=== PATIENT | female | born 1955 | race American Indian/Alaskan Native ===

== ENCOUNTER 2017-07-18 11:09 | Outpatient (CLI) | payer BC ==
--- NOTE | 2017-07-19 14:41 | Mammography Report ---
BILATERAL DIGITAL SCREENING MAMMOGRAM with CAD: 07/18/17 11:09:00 CLINICAL: Routine screening. COMPARISON:07/19/16 FINDINGS: The breasts are almost entirely fatty. No mass, architectural distortion or suspicious calcifications. IMPRESSION: No mammographic evidence of malignancy. BI-RADS CATEGORY: 1 - - Negative RECOMMENDATION: Routine mammographic screening in one year. COMMENT: Patient follow-up letters are generated by our [employer] application.
== END 2017-07-18 11:10 | disposition home or self-care (01) ==
LOC: SPVWC 11:09
PROVIDERS: ATTEND Pediatrics
DX: Z12.31 Encounter for screening mammogram for malignant neoplasm of breast (principal)
CPT/HCPCS: 77067; G0202

== ENCOUNTER 2018-08-21 14:28 | Outpatient (CLI) | payer BC ==
--- NOTE | 2018-08-21 15:33 | Ultrasound Report ---
Spot compression magnification and sonographic examination of focal asymmetric density approximately 12:00 position left breast. Findings: There is partial effacement noted of the density on spot magnification views. Calcification in the adjacent region appears to be benign. No distinct mass is seen. Sonographic examination of asymmetric density reveals no cystic or solid mass. Impression: Probably benign focal asymmetry. 6 month followup with left mammogram and if necessary spot magnification and sonogram. BI-RADS CATEGORY: 3 = Probably benign ACR BI-RADS MAMMOGRAPHIC CODES: 0 = Needs additional imaging evaluation; 1 = Negative; 2 = Benign; 3 = Probably benign; 4 = Suspicious; 5 = Malignant; 6 = Known biopsy-proven malignancy COMMENT: 1. Dense breast tissue, i.e., adenosis, fibrocystic changes, etc., may obscure an underlying neoplasm. 2. Approximately 10% of cancers are not detected with mammography. 3. A negative mammography report should not delay biopsy if a clinically suspicious mass is present.
== END 2018-08-21 14:29 | disposition home or self-care (01) ==
LOC: SPVWC 14:28
PROVIDERS: ATTEND Pediatrics
DX: R92.8 Other abnormal and inconclusive findings on diagnostic imaging of breast (principal)

== ENCOUNTER 2019-02-19 10:42 | Outpatient (CLI) | payer BC ==
--- NOTE | 2019-02-19 11:58 | Mammography Report ---
LEFT BREAST DIAGNOSTIC MAMMOGRAM HISTORY: Six-month follow-up for asymmetry. COMPARISON: 08/21/2018 FINDINGS: Breast Density: Predominantly fatty breast parenchymal pattern. Digital CC and MLO views of the left breast demonstrate resolution of the previously identified asymm etry. No mass, architectural distortion or suspicious calcifications. A stable cluster of relatively central benign calcifications. IMPRESSION No mammographic evidence of malignancy. Recommend return to routine mammographic screening. BIRADS 2: Benign According to the [employer], yearly mammograms are recommended starting at age 40 and continuing as long as a woman is in good health. Clinical Breast Exams should be part of a period ic health exam-about every 3 years for women in their 20s and 30s and every year for women 40 and ove r. Breast self exam is an option for women starting in their 20s. Any breast change noted on a breast self exam should be reported promptly to the patient's healthcare provider. Breast MRI is recommende d for women with an approximately 20-25% or greater lifetime risk of breast cancer, including women w ith a strong family history of breast or ovarian cancer and women who have been treated for Hodgkin's disease. A negative Mammography report should not discourage follow up or biopsy of a clinically significant f inding and/or abnormality. Dense breast tissue may obscure small neoplasms. Signer Name: Bhanu Montano MD Signed: 02/19/2019 11:54 AM Workstation Name: [id number]
--- NOTE | 2019-02-23 13:29 | Mammography Report ---
DEXA BONE DENSITY SCAN INDICATION: OSTEOPOROSIS SCREENING. COMPARISON: 07/08/2014. LUMBAR SPINE (L1-L4): Bone mineral density (BMD) is 1.283 g/cm2. T-score is 2.1 (standard deviations of Young Adult mean). Z-score is 3.8 (standard deviations of Age Matched mean). RIGHT FEMORAL NECK: Bone mineral density (BMD) is 0.863 g/cm2. T-score is -1.1 (standard deviations of Young Adult mean). Z-score is -0.2 (standard deviations of Age Matched mean). IMPRESSION: 1. WHO Classification: Osteopenia. Fracture Risk: Increased. Signer Name: Natalia Hernández MD Signed: 02/23/2019 1:25 PM Workstation Name: [id number]
== END 2019-02-19 10:43 | disposition home or self-care (01) ==
LOC: SPVWC 10:42
PROVIDERS: ATTEND Pediatrics
DX: M85.88 Other specified disorders of bone density and structure, other site (principal); R92.8 Other abnormal and inconclusive findings on diagnostic imaging of breast
CPT/HCPCS: 77080

== ENCOUNTER 2019-07-09 15:06 | Outpatient (CLI) | payer BC ==
--- NOTE | 2019-07-09 16:39 | Mammography Report ---
DIGITAL SCREENING MAMMOGRAM WITH CAD, 07/09/2019 INDICATION: Routine screening mammography. TECHNIQUE: Digital bilateral 2D mammography was obtained in the craniocaudal and mediolateral obliq ue projections. This examination was interpreted with the benefit of Computer-Aided Detection analysi s. COMPARISON: 07/07/2018, 08/21/2018 and 02/19/2019 FINDINGS: Breast Density: The breasts are almost entirely fatty. There is no evidence of dominant mass, suspicious calcifications or architectural distortion in eithe r breast. IMPRESSION: No mammographic evidence of malignancy. Follow up recommendation: Routine yearly BI-RADS Category 1: Negative. A "normal" or negative report should not discourage follow up or biopsy of a clinically significant f inding. A written summary of these findings will be mailed to the patient. The patient will be entered into a mammography reporting system which will generate a reminder letter for the patient's next appointmen t at the appropriate interval. The [employer] recommends yearly mammograms starting at age 40 and continuing as l ashu as a woman is in good health. Breast MRI is recommended for women with an approximate 20-25% or greater lifetime risk of breast cancer, including women with a strong family history of breast or ova brad cancer or who have been treated for Hodgkin's disease. Signer Name: Bhanu Montano MD Signed: 07/09/2019 4:35 PM Workstation Name: [id number]
== END 2019-07-09 15:07 | disposition home or self-care (01) ==
LOC: SPVWC 15:06
PROVIDERS: ATTEND Pediatrics
DX: Z12.31 Encounter for screening mammogram for malignant neoplasm of breast (principal)
CPT/HCPCS: 77067

== ENCOUNTER 2020-07-11 09:47 | Outpatient (CLI) | payer BC ==
--- NOTE | 2020-07-11 13:36 | Mammography Report ---
DIGITAL SCREENING MAMMOGRAM WITH CAD, 07/11/2020 CLINICAL INFORMATION / INDICATION: Routine screening mammography. SCREENING MAMMOGRAM TECHNIQUE: Digital bilateral 2D mammography was obtained in the craniocaudal and mediolateral obliqu e projections. This examination was interpreted with the benefit of Computer-Aided Detection analysis . COMPARISON: 07/09/2019, 02/19/2019, 07/07/2018 FINDINGS: Breast Density: The breasts are almost entirely fatty. No dominant mass, suspicious calcifications, or architectural distortion in either breast. There are stable calcifications on the left. IMPRESSION: No mammographic evidence of malignancy. Follow up recommendation: Routine yearly BI-RADS Category 2: Benign. A "normal" or negative report should not discourage follow up or biopsy of a clinically significant f inding. A written summary of these findings will be mailed to the patient. The patient will be entered into a mammography reporting system which will generate a reminder letter for the patient's next appointmen t at the appropriate interval. The [employer] recommends yearly mammograms starting at age 40 and continuing as l ashu as a woman is in good health. Breast MRI is recommended for women with an approximate 20-25% or greater lifetime risk of breast cancer, including women with a strong family history of breast or ova brad cancer or who have been treated for Hodgkin's disease. Signer Name: Madi Ceja MD Signed: 07/11/2020 1:31 PM Workstation Name: [id number]
== END 2020-07-11 09:48 | disposition home or self-care (01) ==
LOC: SPVWC 09:47
PROVIDERS: ATTEND Pediatrics
DX: Z12.31 Encounter for screening mammogram for malignant neoplasm of breast (principal)
CPT/HCPCS: 77067

== ENCOUNTER 2021-07-12 10:40 | Outpatient (CLI) | payer MEDICARE, BC ==
--- NOTE | 2021-07-13 10:51 | Mammography Report ---
DIGITAL SCREENING MAMMOGRAM WITH CAD, 07/12/2021 CLINICAL INFORMATION / INDICATION: Routine screening mammography. SCREENING MAMMOGRAM TECHNIQUE: Digital bilateral 2D mammography was obtained in the craniocaudal and mediolateral obliqu e projections. This examination was interpreted with the benefit of Computer-Aided Detection analysis . COMPARISON: 07/19/2016 through 07/11/2020. FINDINGS: Breast Density: The breasts are almost entirely fatty. No dominant mass, suspicious calcifications, or architectural distortion in either breast. Grouped benign-appearing calcifications in the left central breast have not changed significantly. Ri ght breast scarring is stable. IMPRESSION: No mammographic evidence of malignancy. Follow up recommendation: Routine yearly BI-RADS Category 2: BENIGN. A "normal" or negative report should not discourage follow up or biopsy of a clinically significant f inding. A written summary of these findings will be mailed to the patient. The patient will be entered into a mammography reporting system which will generate a reminder letter for the patient's next appointmen t at the appropriate interval. The [employer] recommends yearly mammograms starting at age 40 and continuing as l ashu as a woman is in good health. Breast MRI is recommended for women with an approximate 20-25% or greater lifetime risk of breast cancer, including women with a strong family history of breast or ova brad cancer or who have been treated for Hodgkin's disease. Signer Name: Gaurav Obregon MD Signed: 07/13/2021 10:47 AM Workstation Name: [id number]
== END 2021-07-12 10:41 | disposition home or self-care (01) ==
LOC: SPVWC 10:40
PROVIDERS: ATTEND Nurse Practitioner Family
DX: Z12.31 Encounter for screening mammogram for malignant neoplasm of breast (principal)
CPT/HCPCS: 77067